=== PATIENT | female | born 1970 | race Caucasian/White ===

== ENCOUNTER → 2019-01-03 16:35 | Outpatient (CLI) | payer OTHER, SELFPAY ==
--- NOTE | 2019-01-03 16:39 | BI_ITS ---
MAMMOGRAPHY - BILATERAL SCREENING REASON FOR EXAM: Female, 48 years old. Routine annual screening examination. PERTINENT HISTORY: Grandmother with breast cancer. TECHNIQUE: Digital bilateral breast cyndie (3D mammographic acquisition) in the CC and MLO projections. 2-D mediolateral oblique (MLO) and craniocaudad (CC) views of both breasts were obtained. CAD: Full Field Digital Mammography with Computer Added Detection was performed. COMPARISON: Comparison is made with prior examination dated August 25, 2016 and December 08, 2014. FINDINGS: Breast Composition: The breasts are heterogeneously dense, which may obscure small masses. There are no dominant masses or suspicious calcifications. No other significant abnormalities are identified. There has been no significant change since the prior study. BI/SCREEN MAMM (CAD) W/CYNDIE BILAT IMPRESSION: Stable bilateral screening mammogram. Yearly follow-up mammogram recommended. (A) ASSESSMENT CATEGORY: BIRADS Category 1: Negative. A letter regarding these results will be sent to the patient by the facility within 30 days. Approximately 10% of breast cancers are not detected by mammography. A normal mammogram should not delay biopsy of a clinically suspicious abnormality. [id number] Electronically Signed: Edi Locke, at 12:57 EST , Service support ,
== END ==
PROVIDERS: Family Provider Family Medicine; PCP Family Medicine; Referring Provider Obstetrics & Gynecology; Visit Provider Obstetrics & Gynecology
DX: Z12.31 Encounter for screening mammogram for malignant neoplasm of breast (principal)
CPT/HCPCS: 77063; 77067

== ENCOUNTER → 2020-02-20 | Outpatient (CLI) | payer OTHER, SELFPAY ==
[2017-01-15 22:22] VITALS: BMI 25.3
[2020-02-25 09:13] LABS: HPV APTIMA, High Risk Negative (Negative)
== END | disposition home or self-care (01) ==
LOC: LABSPEC 13:13
PROVIDERS: PCP Family Medicine; Visit Provider Obstetrics & Gynecology
DX: Z12.4 Encounter for screening for malignant neoplasm of cervix (principal)
CPT/HCPCS: 87624; 88175; G0145

== ENCOUNTER → 2020-03-23 07:14 | Outpatient (CLI) | payer OTHER, SELFPAY ==
--- NOTE | 2020-03-22 16:34 | BI_ITS ---
MAMMOGRAPHY - BILATERAL SCREENING REASON FOR EXAM: Female, 49 years old. Routine annual screening examination. PERTINENT HISTORY: Grandmother with breast cancer. Aunt with breast cancer. TECHNIQUE: Digital bilateral breast cyndie (3D mammographic acquisition) in the CC and MLO projections. 2-D mediolateral oblique (MLO) and craniocaudad (CC) views of both breasts were obtained. CAD: Full Field Digital Mammography with Computer Added Detection was performed. COMPARISON: Comparison is made with prior examination dated 01/03/2019 and 08/25/2016. FINDINGS: Breast Composition: The breasts are heterogeneously dense, which may obscure small masses. There are no dominant masses or suspicious calcifications. No other significant abnormalities are identified. There has been no significant change since the prior study. BI/SCRN MAMM (CAD)W/CYNDIE BILAT IMPRESSION: Stable bilateral screening mammogram. Yearly follow-up mammogram recommended. (A) ASSESSMENT CATEGORY: BIRADS Category 1: Negative. A letter regarding these results will be sent to the patient by the facility within 30 days. Approximately 10% of breast cancers are not detected by mammography. A normal mammogram should not delay biopsy of a clinically suspicious abnormality. [id number] Electronically Signed: Edi Locke MD at 8:37 EST , Service support ,
== END ==
PROVIDERS: PCP Family Medicine; Referring Provider Obstetrics & Gynecology; Visit Provider Obstetrics & Gynecology
DX: Z12.31 Encounter for screening mammogram for malignant neoplasm of breast (principal)
CPT/HCPCS: 77063; 77067

== ENCOUNTER → 2021-09-20 | Outpatient (CLI) | payer OTHER, SELFPAY ==
--- NOTE | 2021-09-20 10:37 | BI_ITS ---
MAMMOGRAPHY - BILATERAL SCREENING REASON FOR EXAM: Female, 50 years old. Routine annual screening examination. PERTINENT HISTORY: Grandmother with breast cancer. Aunts with breast cancer. TECHNIQUE: Digital bilateral breast cyndie (3D mammographic acquisition) in the CC and MLO projections. 2-D mediolateral oblique (MLO) and craniocaudad (CC) views of both breasts were obtained. CAD: Full Field Digital Mammography with Computer Added Detection was performed. COMPARISON: Comparison is made with prior study dated 03/22/2020 and 01/03/2019. FINDINGS: Breast Composition: The breasts are heterogeneously dense, which may obscure small masses. There are no dominant masses or suspicious calcifications. Stable small benign-appearing bilateral axillary lymph nodes. No other significant abnormalities are identified. There has been no significant change since the prior study. BI/SCRN MAMM (CAD)W/CYNDIE BILAT IMPRESSION: Stable bilateral screening mammogram. Yearly follow-up mammogram recommended. (A) ASSESSMENT CATEGORY: BIRADS Category 2: Benign. A letter regarding these results will be sent to the patient by the facility within 30 days. Approximately 10% of breast cancers are not detected by mammography. A normal mammogram should not delay biopsy of a clinically suspicious abnormality. [id number] Electronically Signed: Edi Locke MD at 12:15 EDT ,
== END | disposition home or self-care (01) ==
LOC: OPBI 10:36
PROVIDERS: PCP Family Medicine; Visit Provider Obstetrics & Gynecology
DX: Z12.31 Encounter for screening mammogram for malignant neoplasm of breast (principal); Z80.3 Family history of malignant neoplasm of breast
CPT/HCPCS: 77063; 77067

== ENCOUNTER → 2022-09-22 | Outpatient (CLI) | payer OTHER, SELFPAY ==
--- NOTE | 2022-09-22 10:14 | BI_ITS ---
MAMMOGRAPHY - BILATERAL SCREENING REASON FOR EXAM: Female, 51 years old. Routine annual screening examination. PERTINENT HISTORY: Grandmother with breast cancer. TECHNIQUE: Digital bilateral breast cyndie (3D mammographic acquisition) in the CC and MLO projections. 2-D mediolateral oblique (MLO) and craniocaudad (CC) views of both breasts were obtained. CAD: Full Field Digital Mammography with Computer Added Detection was performed. COMPARISON: Comparison is made with prior study dated September 20, 2021 and March 22, 2020. FINDINGS: Breast Composition: The breasts are heterogeneously dense, which may obscure small masses. There is a 1 cm x 1.2 cm well-defined nodule in the slightly inferior lateral aspect of the right breast. Correlation with ultrasound is recommended. No other significant abnormalities are identified. BI/SCRN MAMM (CAD)W/CYNDIE BILAT IMPRESSION: 1 cm x 1.2 cm well-defined nodule in the anterior slightly inferior lateral aspect of the right breast. Correlation with ultrasound is recommended. ASSESSMENT CATEGORY: BIRADS Category 0: Incomplete. Need additional imaging evaluation. A letter regarding these results will be sent to the patient by the facility within 30 days. Approximately 10% of breast cancers are not detected by mammography. A normal mammogram should not delay biopsy of a clinically suspicious abnormality. [id number] Electronically Signed: Edi Locke MD at 12:24 EDT ,
== END | disposition home or self-care (01) ==
LOC: OPBI 10:13
PROVIDERS: PCP Family Medicine; Referring Provider Obstetrics & Gynecology; Visit Provider Obstetrics & Gynecology
DX: Z12.31 Encounter for screening mammogram for malignant neoplasm of breast (principal)
CPT/HCPCS: 77063; 77067

== ENCOUNTER → 2022-09-23 | Outpatient (CLI) | payer OTHER, SELFPAY ==
--- NOTE | 2022-09-23 | EMB_PTH ---
PATIENT: BRANDO ARITA LOC: [facility] U#:[id number] AGE/SX: 51/F ROOM: RE09/23/[address]: KRISH Burks : 1970 BED: DIS: 09/23/2022 SPEC #: [id number] RECD: 09/23/22 15:09 STATUS: MAYUR RENirmal #: [id number] ALHAJI: 09/23/22 00:[address]: Villa Granado DEPT: SURGICAL PATHOLOGY RECD BY: Lila Burrows ENTERED: 09/24/22 09:36 SP TYPE: ENDOM BX/C SANTO DR: DO Shannon Sandoval NP-C Tissues: Endometrium, NOS Procedures: Surgery Specimen Level IV Comments: @ Ordering doctor for SEDRICK edited from LYNNE to @ by ANT at 09/24/22 1351 @ Submitting doctor edited from LYNNE to [email or web address] Judd by ANT at 09/24/22 1358 HEADER OPERATION: Endometrial biopsy PRE-OP DIAGNOSIS: N92.6 TISSUE SUBMITTED: Endometrial biopsy, cervical polyp MICROSCOPIC DIAGNOSIS Endometrium and cervical polyp, biopsy: Strips of benign glandular mucosa. Polypoid fragments of endocervix, inflamed. AM:basil 09/25/2022 MICROSCOPIC DESCRIPTION Slides are reviewed. GROSS DESCRIPTION Received in fixative is one container labeled with the patient's name and designated endometrial biopsy. The specimen consists of multiple irregular and mucoid fragments of light reis soft tissue that in aggregate measure 2.5 x 2.0 x <0.1 cm. The specimen is totally submitted in one cassette. / AM:basil 09/24/2022 TC:5 CPT: 03633
[2022-09-23 15:12] LABS: Absolute Lymphocyte Count 2.21 X10^3/uL (0.83-4.51); Absolute Neutrophil Count 4.5 X10^3/uL (2.0-7.7); Basophil# 0.03 X10^3/uL; Basophil% 0.4 % (0-1); Eosinophils% 1.3 % (0-5); Hematocrit 40.4 % (37-47); Hemoglobin 13.4 g/dL (12.0-15.0); Lymphocyte # 2.21 X10^3/ul (0.83-4.51); Lymphocyte % 29.7 % (19-41); Mean Corp Hgb Conc 33.2 g/dL (32-36); Mean Corpuscular Hgb 27.9 pg (27.0-32.0); Mean Corpuscular Volume 84.2 fL (81-99); Mean Platelet Vol. 11.1 fl (6.2-12.0); Monocyte# 0.55 X10^3/uL; Monocyte% 7.4 % (0-10); NRBC Flagged by Analyzer 0 % (0-5); Neutrophil # 4.52 X10^3/uL (2.7-7.7); Neutrophil % 60.9 % (47-70); Platelet Count 274 K/mm3 (150-450); RBC Distribution Width CV 13.5 % (11.6-14.6); RBC Distribution Width SD 41.5 fl (35.1-43.9); White Blood Count 7.4 K/mm3 (4.4-11.0)
[2022-09-23 18:03] LABS: Estradiol 52.8 pg/mL; Follicle Stimulating Hormone 30.7 mIU/mL; Prolactin 6.2 ng/mL; T4 Free Direct 1.05 ng/dL (0.76-1.46); Thyroid Stim Hormone (TSH) 1.31 uIU/mL (0.358-3.74)
== END | disposition home or self-care (01) ==
LOC: WOBLAB 14:56
PROVIDERS: PCP Family Medicine; Visit Provider Nurse Practitioner Women's Health
DX: N92.6 Irregular menstruation, unspecified (principal)
CPT/HCPCS: 36415; 82670; 83001; 83002; 84146; 84439; 84443; 85025; 88305

== ENCOUNTER → 2022-10-01 | Outpatient (CLI) | payer OTHER, SELFPAY ==
--- NOTE | 2022-10-01 09:33 | US_ITS ---
STUDY: ULTRASOUND BREAST - RIGHT REASON FOR EXAM: Female, 51 years old. Abnormal screening mammogram. TECHNIQUE: Axial and longitudinal images of the RIGHT breast were performed with a high resolution ultrasound transducer. # OF IMAGES: 22 COMPARISON: Comparison is made with prior mammogram dated September 22, 2002. FINDINGS: RIGHT Breast: The mammographic and amount to correspond to a 1.5 cm x 1.5 cm x 0.5 cm well-defined hypoechoic solid nodule at the 8:00 position of the breast at 5 cm from the nipple. This may represent a fibroadenoma although tissue diagnosis is recommended. Incidental note is made of a 4 mm x 4 mm x 3 mm cyst at the 8:00 position of the breast at 4 cm from the nipple. US/Breast Limited Unilateral IMPRESSION: The mammographic and amount he corresponds to 1.5 cm x 1.5 cm x 0.5 cm hypoechoic well-defined nodule. Biopsy is recommended. ASSESSMENT CATEGORY: BIRADS Category 4: Suspicious - Biopsy Should Be Considered. A letter regarding these results will be sent to the patient by the facility within 30 days. Electronically Signed: Eid Locke MD at 10:36 EDT ,
== END | disposition home or self-care (01) ==
LOC: OPUS 09:31
PROVIDERS: PCP Family Medicine; Referring Provider Obstetrics & Gynecology; Visit Provider Obstetrics & Gynecology
DX: R92.8 Other abnormal and inconclusive findings on diagnostic imaging of breast (principal)
CPT/HCPCS: 76642

== ENCOUNTER → 2022-10-06 | Outpatient (CLI) | payer OTHER, SELFPAY ==
--- NOTE | 2022-10-06 10:50 | BRBX_PTH ---
PATIENT: BRANDO [facility]ITA [facility] U[facility][id number] AGE/SX: 51/F ROOM: RE10/06/[address]: Dr. Elsy Horton MD : 1970 BED: DIS: 10/06/2022 SPEC #: [id number] RECD: 10/06/22 11:28 STATUS: MAYUR JEWELL #: [id number] ALHAJI: 10/06/22 10:[address]: Elsy Horton DEPT: SURGICAL PATHOLOGY RECD BY: Lila Burrows ENTERED: 10/06/22 11:43 SP TYPE: BREAST BX OTHR DR: Dr. Jesus Robin, DO Tissues: Right breast, NOS Procedures: Surgery Specimen Level IV HEADER OPERATION: Right breast nodule biopsy PRE-OP DIAGNOSIS: Right breast nodule TISSUE SUBMITTED: Right breast nodule tissue 8 o'clock, 5.0 cm MICROSCOPIC DIAGNOSIS Right breast nodule at 8 o'clock, needle core biopsy: Glandular atrophy and collagenized stroma. No evidence of malignancy. AM:basil 10/07/2022 MICROSCOPIC DESCRIPTION Slides are reviewed. GROSS DESCRIPTION Received in fixative is one container labeled with the patient's name and designated right breast nodule. The specimen consists of two cores of reis tissue measuring in aggregate 1.0 x 0.2 x 0.1 cm. The specimen is totally submitted in one cassette. / AM:basil 10/06/2022 TC:5 CPT: 67273
== END | disposition home or self-care (01) ==
LOC: LABSPEC 11:33
PROVIDERS: PCP Family Medicine; Referring Provider Surgery; Visit Provider Surgery
DX: N63.10 Unspecified lump in the right breast, unspecified quadrant (principal)
CPT/HCPCS: 88305

== ENCOUNTER → 2023-04-10 | Outpatient (CLI) | payer OTHER, SELFPAY ==
--- NOTE | 2023-04-10 09:05 | US_ITS ---
STUDY: ULTRASOUND BREAST - RIGHT REASON FOR EXAM: Female, 52 years old. Six-month follow-up for right breast biopsy. TECHNIQUE: Axial and longitudinal images of the RIGHT breast were performed with a high resolution ultrasound transducer. # OF IMAGES: 33 COMPARISON: Comparison is made with prior sonogram dated October 01, 2022. FINDINGS: RIGHT Breast: There is a 1.3 cm x 1.5 cm x 0.9 cm well-circumscribed hypoechoic nodular density at the 8:00 position breast and 5 cm from the nipple. A biopsy clip is seen along the superior aspect of the nodule. Increased vascularity is seen. Incidental note is made of a 9 mm x 8 mm x 5 mm septated cyst at the 10:00 position of the breast at 3 cm from the nipple. US/Breast Limited Unilateral IMPRESSION: Status post biopsy of a 1.3 cm x 1.5 cm x 0.9 cm well-circumscribed hypoechoic nodular density at the o''clock position of the breast and 5 cm from the nipple. ASSESSMENT CATEGORY: BIRADS Category 2: Benign. A letter regarding these results will be sent to the patient by the facility within 30 days. Electronically Signed: Edi Locke MD at 13:52 EST ,
--- OUTSIDE RECORDS SUMMARY | 2023-04-10 09:38 | XMS RPT_ITS | CCD ---
Author Name Unknown Address [address] [place] [address] Organization [facility] Care Team Providers Care Sport Intern Name Role Phone Jesus Robin DO Primary Care Provider SHAYLA MARCELINO Attending Unavailable PROVIDER, UNKNOWN Referring Unavailable Jesus Robin Primary Care Unavailable Jesus Robin DO Primary Care Provider SILVIA SOSA Attending Unavailable JESUS ROBIN Primary Care Unavailable JESUS ROBIN Attending Unavailable JESUS ROBIN Primary Care Unavailable Allergies Allergy Classification Reported Allergen(s) Allergy Type Date of Onset Reaction(s) Facility Cephalosporins (antibiotic) (1 source) Cephalexin Drug Allergy 01-28-20 17 Rash [facility] DOPamine Antagonists (1 source) Metoclopramide Drug Allergy 09-26-19 16 [facility] Sulfamethoxazole / Trimethoprim (1 source) Sulfamethoxazole / Trimethoprim Drug Allergy 01-28-20 17 [facility] (6 sources) Amoxicillin-Pot Clavulanate Propensity to adverse reactions to drug 09-26-19 16 Rash [facility] (5 sources) Amoxicillin Drug Allergy 01-16-20 17 Rash [facility] (5 sources) Cephalexin Drug Allergy 01-28-20 17 Rash [facility] (5 sources) Clavulanate Drug Allergy 01-16-20 17 [facility] (5 sources) Metoclopramide Drug Allergy 09-26-19 16 [facility] (5 sources) Sulfamethoxazole / Trimethoprim Drug Allergy 01-28-20 17 Rash [facility] (2 sources) Doxycycline Drug Allergy 12-19-19 23 Hives [facility] Medications Current Medications Medication Drug Class(es) Dates Sig (Normalized) Sig (Original) Ascorbic Acid (1 source) Vitamin C Ascorbic Acid (VITAMIN C PO) Take by mouth. 0 Active azithromycin 250 mg oral tablet (1 source) Macrolide Antimicrobial Start: 12-18-2022 End: 12-23-2022 azithromycin (Zithromax) 250 MG tablet Indications: Viral URI , Laryngitis Take 2 tabs (500 mg) by mouth today, than 1 tab (250 mg) daily for 4 days. 6 tablet 0 12/18/2022 12/23/2022 Active Problems Active Problems Problem Classification Problem Date Documented Da te Episodic/Chronic Other ear and sense organ disorders (5 sources) Hearing loss; Translations: [Unspecified hearing loss, unspecified ear] Onset: 09-28-2022 09-28-2022 Chronic Other lower respiratory disease (1 source) Dyspnea on exertion; Translations: [Dyspnea, unspecified] Episodic Other lower respiratory disease (1 source) Rib pain; Translations: [Pleurodynia] Episodic Other screening for suspected conditions (not mental disorders or infectious disease) (5 sources) Patient encounter status; Translations: [Encounter for screening for other suspected endocrine disorder] Episodic Unclassified (2 sources) Annual Exam; Translations: [Annual Exam] Onset: 03-24-2022 Past or Other Problems Problem Classification Problem Date Documented Da te Episodic/Chronic Other upper respiratory infections (11 sources) Viral upper respiratory tract infection; Translations: [Acute upper respiratory infection, unspecified] Onset: 01-29-2021 12-07-2021 Episodic Residual codes; unclassified (8 sources) Family history of cancer of colon; Translations: [Family history of malignant neoplasm of digestive organs] Onset: 03-26-2022 03-31-2022 Episodic Residual codes; unclassified (5 sources) Family history of diabetes mellitus; Translations: [Family history of diabetes mellitus] Onset: 03-26-2022 03-26-2022 Episodic Results Test Name Value Interpretation Reference Range Facil ity Vital Signs Date Time Vital Sign Value Performing Clinician Camila brandt 12-18-2022 14:46-0400 Body mass index (BMI) [Ratio] 28.19 kg/m2 Silvia Sosa MD Work Phone: [facility] 12-18-2022 14:46-0400 Body weight 81.65 kg Silvia Sosa MD Work Phone: [facility] 12-18-2022 14:46-0400 Diastolic blood pressure 75 mm[Hg] Silvia Sosa MD Work Phone: [facility] 12-18-2022 14:46-0400 Heart rate 91 /min Silvia Sosa MD Work Phone: [facility] 12-18-2022 14:46-0400 SaO2% (BldA) [Mass fraction] 97 % Silvia Sosa MD Work Phone: [facility] 12-18-2022 14:46-0400 Systolic blood pressure 137 mm[Hg] Silvia Sosa MD Work Phone: [facility] Encounters Encounter Date Encounter Type Care Provider Facility Start: 12-18-2022 End: 12-19-2022 ambulatory [facility] Start: 12-18-2022 End: 12-18-2022 Office outpatient visit 15 minutes Silvia Sosa MD Work Phone: [facility] Internal Medicine Procedures Date Procedure Procedure Detail Performing Clinician Start: 09-22-2022 Mammography Jesus Jacekjuliana sso DO Work Phone: Start: 08-06-2020 Radiologic exam ches t 2 views Kelly Cooper MOTORCOACH OPERATOR - TEST DESK SUPERVISOR Work Phone: Start: 08-06-2020 Comprehensive metabo lic panel Kelly Cooper MOTORCOACH OPERATOR - TEST DESK SUPERVISOR Work Phone: Plan of Treatment Date Care Activity Detail Author Start: 2032 RSV Immunization age d 60 or older (1 - 1-dose 60+ series) RSV Immunization aged 60 or older (1 - 1-dose 60+ series) [facility] Start: 09-23-2023 Screening for malign ant neoplasm of breast Mammogram [facility] Start: 2022 Zoster Vaccines (1 of 2) Zoster Vacc dayron (1 of 2) [facility] Start: 10-24-2022 Influenza vaccination Influenza Vacc ine (#1) [facility] Start: 08-24-2022 Lipid panel Lipid screen [facility] Work Phone: Start: 10-24-2020 Influenza vaccination Flu vacc ine (Season Ended) [facility] Work Phone: Start: 2002 Screening for malign ant neoplasm of cervix [facility] Start: 1993 Screening for malign ant neoplasm of cervix [facility] Start: 11-01-1991 DTaP/Tdap/Td vaccine (1 - Tdap) DTaP/Tdap/Td vaccine (1 - Tdap) [facility] Work Phone: Start: 11-01-1991 DTaP/Tdap/Td Vaccine s (1 - Tdap) DTaP/Tdap/Td Vaccines (1 - Tdap) [facility] Start: 1990 Diabetes mellitus screening Diabetes Screening [facility] Start: 1990 Hepatitis C screening Hepatitis C Sc reening [facility] Start: 11-01-1987 HIV screening HIV screen [facility] Work Phone: Start: 1984 COVID-19 Vaccine (1) COVID-19 Vaccin e (1) [facility] Work Phone: Start: 1984 Depression Screening Depression Scre ening [facility] Start: 1973 MMR Vaccines (1 of 1 - Standard series) MMR Vaccines (1 of 1 - Standard series) [facility] Start: 04-30-1973 COVID-19 Vaccine (#1) COVID-19 Vacci ne (#1) [facility] Start: 1972 Hepatitis B Vaccines (1 of 3 - 3-dose series) Hepatitis B Vaccines (1 of 3 - 3-dose series) [facility] Start: 1972 Hepatitis C screening Hepatitis C sc reen [facility] Work Phone: Start: 1972 HIV screening HIV Screening [facility] Start: 1972 Screening for malign ant neoplasm of colon [facility] Payers Date Payer Category Payer Unknown 2014 Unknown [id number] 1972 Unknown [id number] Social History Date Type Detail Facility [facility]: [facility]06-[facility] Work Phone: Start: 08-06-2020 Tobacco use and exposure Never used [employer] Phone: Start: 08-06-2020 End: 09-28-2022 Alcohol intake Current drinker of alcohol (finding) [facility] Work Phone: Start: 08-06-2020 End: 12-18-2022 Alcohol intake [employer] Work Phone: Start: 09-21-2019 History SDOH Alcohol Frequency 1 [facility] Work Phone: Start: 09-21-2019 History SDOH Social Conne[employer] Phone 5 [employer] Phone: Start: 09-21-2019 History SDOH Social Conne[employer] Get Together 3 [employer] Phone: Start: 09-21-2019 History SDOH Physica l Activity DPW 0 [employer] Phone: Start: 09-21-2019 History SDOH IPV Fear 2 S [employer] Work Phone: Start: 01-19-2017 Alcohol Comment socially [employer] Phone: Start: 1970 Sex Assigned At Female [employer] Phone: Exposure to SARS-CoV -2 (event) Yes [facility] Start: 09-28-2022 End: 12-18-2022 Tobacco use panel [facility] Start: 12-13-2021 Gender identity Identifies as female gender (finding) [facility] Start: 12-13-2021 Sexual orientation Heterosexual (fin ding) [facility] Start: 03-14-2022 End: 03-24-2022 Exposure to SARS-CoV-2 (event) Not sure [facility] Clinical Notes 03-26-2022 to 12-18-2022 Silvia Sosa MD - 12/18/2022 2:40 PM EDTTelephone Encounter - Yadi Deleon - 09/29/2022 3:59 PM EDTTelephone Encounter - Yadi Deleon - 09/29/2022 3:59 PM EDT Note Date & Type Note Facility 12-18-2022 History of Presen t illness Narrative Images from the original note were not included. [facility] [address] [facility] [id number] Dept: [phone] Dept Visit type: Established patient Reason for Visit: OTHER (C/o sore throat, loss of voice) Assessment and Plan 1. Viral URI - azithromycin (Zithromax) 250 MG tablet; Take 2 tabs (500 mg) by mouth today, than 1 tab (250 mg) daily for 4 days., Normal 2. Laryngitis - azithromycin (Zithromax) 250 MG tablet; Take 2 tabs (500 mg) by mouth today, than 1 tab (250 mg) daily for 4 days., Normal Discussed with patient likely viral URI and laryngitis in nature. Advised to continue with conservative measures. We will provide her with a Z-Zi since has severe allergies to other medications and discussed if not improved by next Thursday to take medication. Patient verbalized understanding. We will continue with her Mucinex, pseudoephedrine, warm fluids and will take time off of work over the next 2 days to get rest. No follow-ups on file. Subjective HPI 52-year-old patient with past medical history as below presents today due to upper respiratory symptoms that are worsening. Upper respiratory symptoms Patient states that symptoms started on Thursday, tested home but did not. Feels that her symptoms are worsening and has now lost her voice. Has a sore throat, productive cough, headache, fatigue, sinus pressure and nausea. No fevers or congestion or vomiting or diarrhea or ear pain. Currently only taking Mucinex and herbal supplements. 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 Review of Systems Constitutional: Positive for fatigue. Negative for chills and fever. HENT: Positive for congestion, sore throat and voice change. Negative for ear pain, postnasal drip, rhinorrhea and trouble swallowing. Respiratory: Negative for cough and shortness of breath. Neurological: Positive for headaches. All other systems reviewed and are negative. Allergies Allergen Reactions Amoxicillin Rash Amoxicillin-Pot Clavulanate Rash Metoclopramide Other reaction(s): Itching of skin, Other Clavulanic Acid Other reaction(s): Rash Doxycycline Hives Cephalexin Rash Sulfamethoxazole-Trimethoprim Rash Outpatient Medications Prior to Visit Medication Sig Dispense Refill Ascorbic Acid (VITAMIN C PO) Take by mouth. No facility-administered medications prior to visit. Past Medical History: Diagnosis Date Breast cancer screening 08/2022 Dr. Granado Family history of colon cancer Family history of diabetes mellitus (DM) Hearing loss Left implantable aide Social History Tobacco Use Smoking status: Never Smokeless tobacco: Never Substance Use Topics Alcohol use: Yes Alcohol/week: 1.0 standard drink of alcohol Past Surgical History: Procedure Laterality Date SECTION (HISTORICAL) KNEE ARTHROSCOPY Left OTHER SURGICAL HISTORY implantable hearing aid left Family History Problem Relation Name Age of Onset Uterine cancer Mother Diabetes Mother Heart attack Father 69 50 age 69 Prostate cancer Father 69 High Blood Pressure Father 69 Headache Sister pseudotumor cerebri secondary to minocycline Bladder Cancer Brother Objective BP 137/75 (BP Location: Left arm, Patient Position: Sitting, BP Cuff Size: Large adult) Pulse 91 Wt 180 lb (81.6 kg) SpO2 97% BMI 28.19 kg/m Physical Exam Constitutional: General: She is not in acute distress. Appearance: Normal appearance. She is ill-appearing. She is not toxic-appearing. HENT: Head: Normocephalic. Comments: Hoarse voice. Distorted TM bilaterally but no suppuration or rupture. No tenderness to palpation over maxillary and frontal sinuses. Right Ear: Ear canal and external ear normal. There is no impacted cerumen. Left Ear: Ear canal and external ear normal. There is no impacted cerumen. Nose: Nose normal. No congestion. Mouth/Throat: Mouth: Mucous membranes are moist. Pharynx: Oropharynx is clear. No oropharyngeal exudate or posterior oropharyngeal erythema. Eyes: General: Right eye: No discharge. Left eye: No discharge. Cardiovascular: Rate and Rhythm: Normal rate. Pulses: Normal pulses. Pulmonary: Effort: Pulmonary effort is normal. No respiratory distress. Musculoskeletal: Cervical back: Neck supple. No tenderness. Lymphadenopathy: Cervical: No cervical adenopathy. Neurological: Mental Status: She is alert. Data Reviewed and Summarized Labs: Imaging/Testing: Silvia Sosa MD documented in this encounter [facility] 09-29-2022 Telephone encount er Note Colonoscopy requested from Dr. Roberson [facility] 09-29-2022 Miscellaneous Notes Formattin g of this note might be different from the original. Colonoscopy requested from Dr. Roberson Noted. Pt. Called back in to give info about colonoscopy had done earlier this / July 25 Dr. Roberson/nikolai hernandez in [place] Referral pended for doctor's signature Set up colonoscopy Patient says ok she will get a colonoscopy. Let patient know I went through the old [employer] system and I could not find a colonoscopy report. I tried to call this patient but was not accepting calls. Because of the family history of colon cancer the recommendation is to get a colonoscopy. Patient says she honestly has no clue who did it and she thinks its was done at [facility] but even that she isnt't quite sure on she says we are the ones who ordered it. Will need to know who did pt's previous colonoscopy. Please assist Placed call to patient. Was able to speak to patient. Patient stated its been over 5 years. She stated she is willing to proceed with the colonoscopy.All concerns in message have been addressed. Placed call to patient to discuss provider question about colonoscopy. Message left on voicemail to return call. Call pt and ask if she is certain that she has had a colonoscopy in the last 5 years . If she is not should get set up for colonscopy documented in this encounter [facility] 09-29-2022 Telephone encount er Note Noted. [facility] 09-29-2022 Telephone encount er Note Pt. Called back in to give info about colonoscopy had done earlier this / July 25 Dr. Roberson/nikolai hernandez in [place] [facility] 03-31-2022 Note Referral pended for doctor's signature [facility] 03-31-2022 Telephone encount er Note Referral pended for doctor's signature [facility] 03-28-2022 Telephone encount er Note Set up colonoscopy [facility] 03-28-2022 Telephone encount er Note Patient says ok she will get a colonoscopy. [facility] 03-27-2022 Telephone encount er Note Let patient know I went through the old epic system and I could not find a colonoscopy report. I tried to call this patient but was not accepting calls. Because of the family history of colon cancer the recommendation is to get a colonoscopy. [facility] 03-27-2022 Telephone encount er Note Patient says she honestly has no clue who did it and she thinks its was done at [facility] but even that she isnt't quite sure on she says we are the ones who ordered it. [facility] 03-27-2022 Telephone encount er Note Will need to know who did pt's previous colonoscopy. Please assist [facility] 03-27-2022 Telephone encount er Note Placed call to patient. Was able to speak to patient. Patient stated its been over 5 years. She stated she is willing to proceed with the colonoscopy.All concerns in message have been addressed. [facility] 03-26-2022 Telephone encount er Note Placed call to patient to discuss provider question about colonoscopy. Message left on voicemail to return call. [facility] 03-26-2022 Telephone encount er Note Call pt and ask if she is certain that she has had a colonoscopy in the last 5 years . If she is not should get set up for colonscopy [employer] documented in this encounter [facility] Work Phone: Evaluation note* Diagnosis Colon cancer screening- Primary Special screening for malignant neoplasms, colon Family history of colon cancer Family history of malignant neoplasm of gastrointestinal tract documented in this encounter [facility]* Diagnosis Viral URI- Primary Acute upper respiratory infections of unspecified site Laryngitis Acute laryngitis, without mention of obstruction documented in this encounter [facility] for referral (narrative)* Consultation (Routine) - Pending Review Specialty Diagnoses / Procedures Referred By Magali jackson Referred To Contact Gastroenterology Diagnoses Family history of colon cancer Colon cancer screening Procedures [place] OFFICE/OUTPATIENT NEW HIGH MDM 60-74 MINUTES Jesus Robin DO [address] [place] [address] David Roberson MD [address] [place] [address] [place] [id number] Referral ID Status Reason Start Date Expiration Date Visits Requested Visits Authorized [id number] Pending Review Specialty Services Required 03/31/2022 03/31/2023 1 1 [employer] Advance Directives Documents on File Type Date Recorded Patient Salad Counter Attendant Expl anation ACP-Advance Directive ACP-Power of Pipe Buffer Summary Purpose Family History No Family History Records FoundNo Family History Records Found Additional Source Comments INFORMATION SOURCE (unrecogn ized section and content) DATE CREATED AUTHOR AUTHOR'S ORGANIZ ATION 12/22/2022 [facility] Reason for Visit (unrecogniz ed section and content) Reason Comments OTHER C/o sore throat, los s of voice Reason Onset Date Comments Error (VOID this visit) 09/29/2022 Care Teams (unrecognized sec tion and content) Sport Intern Relationship Specialty Start Date End Date Jesus Robin DO [address] [place] [address] PCP - General 11/30/14 Sport Intern Relationship Specialty Start Date End Date Jesus RobinDO [address] [place] [id number] PCP - General 11/30/14 FOR RECORDS PERTAINING TO PATIENTS WHO ARE OR HAVE BEEN ENROLLED IN A CHEMICAL DEPENDENCY/SUBSTANCEABUSE PROGRAM, SOME INFORMATION MAY BE OMITTED. This clinical summary was aggregated from multiple sources. Caution should be exercised in using it in the provision of clinical care. This summary normalizes information from multiple sources, and as a consequence, information in this document may materially change the coding, format and clinical context of patient data. In addition, data may be omitted in some cases. CLINICAL DECISIONS SHOULD BE BASED ON THE PRIMARY CLINICAL RECORDS. [facility] [employer] [facility]. provides no warranty or guarantee of the accuracy or completeness of information in this document.
== END | disposition home or self-care (01) ==
PROVIDERS: PCP Family Medicine; Referring Provider Surgery; Visit Provider Surgery
DX: R92.8 Other abnormal and inconclusive findings on diagnostic imaging of breast (principal)
CPT/HCPCS: 76642

== ENCOUNTER → 2023-10-23 | Outpatient (CLI) | payer OTHER, SELFPAY ==
--- NOTE | 2023-10-23 14:16 | BI_ITS ---
MAMMOGRAPHY - BILATERAL SCREENING REASON FOR EXAM: Female, 52 years old. Routine annual screening examination. PERTINENT HISTORY: Grandmother with breast cancer. Prior right ultrasound-guided breast biopsy. TECHNIQUE: Digital bilateral breast cyndie (3D mammographic acquisition) in the CC and MLO projections. 2-D mediolateral oblique (MLO) and craniocaudad (CC) views of both breasts were obtained. CAD: Full Field Digital Mammography with Computer Added Detection was performed. COMPARISON: Comparison is made with prior study of September 22, 2022 and September 20, 2021. FINDINGS: Breast Composition: The breasts are heterogeneously dense, which may obscure small masses. There are no dominant masses or suspicious calcifications. Tissue clip marker is seen in the tiny nodule in the central slightly lateral aspect of the right breast. The previously seen nodule has decreased in size. No other significant abnormalities are identified. There has been no significant change since the prior study. BI/SCRN MAMM (CAD)W/CYNDIE BILAT IMPRESSION: Stable bilateral screening mammogram. Yearly follow-up mammogram recommended. (A) ASSESSMENT CATEGORY: BIRADS Category 2: Benign. A letter regarding these results will be sent to the patient by the facility within 30 days. Approximately 10% of breast cancers are not detected by mammography. A normal mammogram should not delay biopsy of a clinically suspicious abnormality. [id number] Electronically Signed: Edi Locke MD at 7:37 EDT ,
--- NOTE | 2023-10-23 14:16 | US_ITS ---
STUDY: ULTRASOUND BREAST - RIGHT REASON FOR EXAM: Female, 52 years old. Follow-up for prior right breast biopsy. TECHNIQUE: Axial and longitudinal images of the RIGHT breast were performed with a high resolution ultrasound transducer. # OF IMAGES: 24 COMPARISON: Comparison is made with prior sonogram dated April 10, 2023. FINDINGS: RIGHT Breast: There is a stable 1.3 cm x 1.5 cm x 0.6 cm well-circumscribed hypoechoic nodule at the 8:00 position of the breast at 5 cm from the nipple. A biopsy clip is seen along the superior aspect of the nodule. Stable 8 mm x 7 mm x 2 mm septated cyst at the 10:00 position of the breast at 3 cm from the nipple. US/Breast Limited Unilateral IMPRESSION: Stable examination. ASSESSMENT CATEGORY: BIRADS Category 2: Benign. A letter regarding these results will be sent to the patient by the facility within 30 days. Electronically Signed: Edi Locke MD at 7:55 EDT ,
== END | disposition home or self-care (01) ==
LOC: OPBI 14:14
PROVIDERS: PCP Nurse Practitioner; Referring Provider Surgery; Visit Provider Surgery
DX: Z12.31 Encounter for screening mammogram for malignant neoplasm of breast (principal); Z80.3 Family history of malignant neoplasm of breast; R92.8 Other abnormal and inconclusive findings on diagnostic imaging of breast
CPT/HCPCS: 76642; 77063; 77067

== ENCOUNTER 2024-03-12 09:51 | Emergency (ER) | payer OTHER, SELFPAY ==
[2024-03-12 09:52] VITALS: BP 92/50; PULSE 114; RESP 18; TEMP 37.2; O2SAT 98; BMI 27.3
--- NOTE | 2024-03-12 11:07 | RAD_ITS ---
EXAM: XR CHEST, 2 VIEWS CLINICAL INDICATION: cough TECHNIQUE: Frontal and lateral views of the chest. COMPARISON: No relevant prior studies available. FINDINGS: LUNGS AND PLEURAL SPACES: Ill-defined heterogeneously dense airspace disease at posterior left lower lobe. No pneumothorax. No effusion. HEART: Unremarkable. Cardiac silhouette not enlarged. MEDIASTINUM: Central airways and mediastinal contour are unremarkable. BONES/JOINTS: Unremarkable. No acute fracture. SOFT TISSUES: Unremarkable. RAD/Chest PA and Lateral IMPRESSION: Left lower lobe pneumonia posteriorly. Electronically Signed: Mic Hannon MD at 12:42 EST ,
--- NOTE | 2024-03-12 11:11 | EDS_ITS ---
HPI History of Present Illness Chief Complaint: General Illness Informant: patient Narrative Narrative: 53-year-old female presenting to the emergency room not feeling well. She notes a cough and is concerned for pneumonia. She states that over the last weekend she had some allergy symptoms but does not quite recall exactly what they were. She went to an urgent care on Thursday was felt that she could possibly have an RSV or influenza A infection but she states that she was told it was outside the window for treatment so they did not test. All week long she notes persistent nausea resulting in decreased p.o. intake and subsequently decreased urination. She notes the urine does have a bit of different smell than normal. She notes continued intermittent fevers. She states she had 101 fever this morning did not take anything but it has subsequently resolved. She notes a very minimal amount of diarrhea. Cough has been nonproductive. She notes significant fatigue [facility] Medical History Normal colonoscopy Status post placement of bone anchored hearing aid (BAHA) Abnormal ultrasound of breast Home Medications ?Medication ?Instructions ?Recorded ?Last Taken ?Type famotidine 40 mg tablet 40 mg PO DAILY #30 tabs 10/19/23 Unknown Rx azithromycin 250 mg tablet See Rx Instructions PO .COMPLEX #6 03/12/24 Unknown Rx (Zithromax Z-Zi) tabs ondansetron 4 mg disintegrating 4 mg PO Q6H PRN PRN Nausea #15 tabs 03/12/24 Unknown Rx tablet Allergy/AdvReac Type Severity Reaction Status Date / Time doxycycline Allergy Severe Rash Verified 03/12/24 09:52 Sulfa (Sulfonamide Allergy Severe Hives Verified 03/12/24 09:52 Antibiotics) amoxicillin (From Augmentin) Allergy Rash Verified 03/12/24 09:52 cephalexin (From Keflex) Allergy Hives Verified 04/22/23 13:00 clavulanic acid (From Allergy Rash Verified 03/12/24 09:52 Augmentin) metoclopramide (From Reglan) AdvReac Other Verified 03/12/24 09:52 Family History Grandmother Colon cancer Surgical History S/P breast biopsy History of knee surgery Social History Smoking Status: Never smoker alcohol intake: current alcohol intake frequency: holidays/special occasions only substance use type: does not use additional social history: takes aspirin 81mg most days ROS ROS ED ROS Narrative Generalized fatigue Constitutional Constitutional ED: Reports chills and fever(s); Denies weight loss Eyes Eyes: Denies change in vision or diplopia ENT ENT ED: Reports rhinorrhea; Denies ear pain or sore throat Cardiovascular Cardiovascular: Denies chest pain, orthopnea, palpitations or racing heartbeat Respiratory/Chest Respiratory/Chest: Reports cough; Denies dyspnea or orthopnea Gastrointestinal Gastrointestinal: Reports diarrhea and nausea; Denies abdominal pain or vomiting Genitourinary Genitourinary ED: Denies dysuria, hematuria or urinary frequency Musculoskeletal Musculoskeletal: Denies arthralgias or myalgias Integumentary Denies abscess or rash Neurologic Neurologic: Reports headache(s); Denies weakness Psychiatric Psychiatric: Denies anxiety, depression, suicidal ideation or suicidal thoughts Endocrine Endocrinology: Denies polydipsia, polyphagia or polyuria Allergic/Immunologic Allergic/Immunologic ED: Denies mouth swelling, tongue swelling or urticaria EXAM Physical Exam Const Vital Signs: 03/12/24 09:52 03/12/24 10:20 03/12/24 11:14 Temperature 98.9 F Temperature Source Oral Pulse Rate 114 H 102 H Respiratory Rate 18 Respiratory Effort Normal Non-Labored Respiratory Pattern Normal Blood Pressure 92/50 L 90/60 Blood Pressure Mean 64 70 Pulse Ox 98 96 Oxygen Delivery Method Room Air Room Air 03/12/24 13:00 03/12/24 13:30 Temperature 97.7 F L Temperature Source Pulse Rate 102 H 105 H Respiratory Rate 18 16 Respiratory Effort Respiratory Pattern Blood Pressure 82/63 L 93/44 L Blood Pressure Mean 69 60 Pulse Ox 98 98 Oxygen Delivery Method Room Air Positive well nourished and well developed General Appearance ED: well developed and NAD HEENT Reports normocephalic, head/scalp atraumatic and moist mucous membranes Eyes PERRL and EOMs intact bilaterally Neck no lymphadenopathy, supple and no JVD Resp normal respiratory effort and clear to auscultation bilaterally Resp Narrative: dry cough Cardio regular rate, regular rhythm and no murmurs Rate: tachycardic GI normal to inspection, nondistended, normoactive bowel sounds and non-tender Palpation: soft Back/Spine no CVA tenderness and normal ROM Extremity normal to inspection General Extremety ED: Negative for edema General Extremity: Negative for edema Neuro oriented x3 and CN's II-XII intact bilaterally Sensorium / Orientation: alert Motor Exam: strength 5/5 throughout Psych mental status grossly normal Mood & Affect: Negative for depressed or tearful Skin no rashes or lesions noted and no wounds MDM MDM MDM Narrative Medical decision making narrative: Differential diagnosis includes but not limited to diarrhea vomiting pneumonia viral syndrome sepsis White count slightly elevated 12.4 hemoglobin 12.8. BUN is 16 creatinine 1.03. Sodium 139 potassium 3.3 CO2 of 27. Total bilirubin is 1.3 with a direct of 0.37 AST of 41 lipase is 11. Urinalysis no overt infection. She is influenza A positive. My independent interpretation of the chest x-ray is left lower lobe infiltrate. Patient received IV fluids and blood pressures improved. The last blood pressure in the chart to the nursing recorded was 93/44 with a heart rate of 105. However as I was dictating and reviewing the patient her blood pressure while sitting up was 106/54 with a heart rate of 102. We talked about outpatient treatment with antibiotics oral hydration and Zofran. I do not believe that she needs Tamiflu and she has been symptomatic now for about 6 days. She is comfortable with outpatient management return if worsening or concerns. I will be placing her on azithromycin as she has a penicillin and sulfa doxycycline and Keflex allergies. I will write for Zofran. History & Record Review Discussion w/independent historian: Patient and Significant other Lab Data Attestation: I reviewed the patient's lab results. Labs: Laboratory Results - last 24 hr 03/12/24 03/12/24 11:15 11:30 WBC 12.4 H RBC 4.67 Hgb 12.8 Hct 38.0 MCV 81.4 MCH 27.4 MCHC 33.7 RDW Std Deviation 41.2 RDW Coeff of Amber 14.0 Plt Count 191 MPV 10.6 Neut % (Auto) Not Reportable Absolute Neuts (auto) 10.9 H Absolute Lymphs (auto) 0.74 L Total Counted 100 Neutrophils % (Manual) 68 Band Neutrophils % 20 H Lymphocytes % (Manual) 6 L Monocytes % (Manual) 6 Platelet Estimate ADEQUATE RBC Morphology NORM C+C Sodium 139 Potassium 3.3 L Chloride 105 Carbon Dioxide 27.0 Anion Gap 6 BUN 16 Creatinine 1.03 H Estim Creat Clear Calc 69.98 Est GFR (MDRD) Af Amer 73 Est GFR (MDRD) Non-Af 60 BUN/Creatinine Ratio 15.5 Glucose 114 H Calcium 8.5 Total Bilirubin 1.30 H Direct Bilirubin 0.37 H AST 41 H ALT 51 Alkaline Phosphatase 65 Total Protein 6.9 Albumin 3.0 L Globulin 3.9 Lipase 11 L Urine Color Yellow Urine Clarity Sl. Cloudy Urine pH 5.0 Ur Specific [place] 1.025 Urine Protein 30 H Urine Glucose (UA) Normal Urine Ketones Negative Urine Occult Blood 50 H Urine Nitrite Negative Urine Bilirubin 1 H Urine Urobilinogen 4 H Ur Leukocyte Esterase 25 H Urine RBC 0 SEEN Urine WBC 0-5 SEEN Ur Squamous Epith Cells 0 SEEN Urine Bacteria 0 SEEN Urine Mucus 0 SEEN Radiography Diagnostic Testing: Clinical Impression(s) from Imaging Studies Chest X-Ray 03/12/24 11:07 IMPRESSION: Left lower lobe pneumonia posteriorly. Electronically Signed: Mic Hannon MD at 12:42 EST , Discharge Plan Triage Chief Complaint: General Illness ED Provider: Sebastien Rodriguez Dx/Rx/DC Orders Clinical Impression: Pneumonia, Acute dehydration, Influenza A Instructions: ED Influenza (Adult), ED Pneumonia (Adult) Prescriptions: New azithromycin [Zithromax Z-Zi] 250 mg tablet See Rx Instructions .ROUTE .COMPLEX Qty: 6 0RF Rx Instructions: For 250 mg dose pack: take 500 mg today (day 1), then 250 mg for 4 days (days 2-5) ondansetron 4 mg tablet,disintegrating 4 mg PO Q6H PRN PRN (Reason: Nausea) Qty: 15 0RF No Action famotidine 40 mg tablet 40 mg PO DAILY Qty: 30 1RF Primary Care Provider: Dominga Joseph NP Referrals: Dominga Joseph NP, [employer] [Primary Care Provider] - As Needed Activity Restrictions/Additional Instructions: As we discussed you have influenza A and also some mild dehydration as well as pneumonia. Please orally hydrate using the Zofran to help control the nausea. Please take the full course of the antibiotic. If you feel like your breathing is worse or you are having concerns please return to emergency Print Language: Cook Islander Disposition Disposition: Home, Self Care Discharge Date/Time: 03/12/24 13:35
[2024-03-12 11:14] VITALS: BP 90/60; PULSE 102; O2SAT 96
[2024-03-12 11:27] LABS: Hemoglobin 12.8 g/dL (12.0-15.0); Mean Corp Hgb Conc 33.7 g/dL (32-36); Mean Corpuscular Hgb 27.4 pg (27.0-32.0); Mean Corpuscular Volume 81.4 fL (81-99); Mean Platelet Vol. 10.6 fl (6.2-12.0); POSITIVE MORPHOLOGY YES; Platelet Count 191 K/mm3 (150-450); RBC Distribution Width SD 41.2 fl (35.1-43.9); Red Blood Count 4.67 M/mm3 (4.2-5.4); White Blood Count 12.4 K/mm3 (4.4-11.0)
[2024-03-12] MEDS: 0.9% Normal Saline (1000mL) 1,000 ML 999 ML IV (11:35)
[2024-03-12 11:41] LABS: Bacteria 0 SEEN /hpf (None Seen); Mucous, Urine 0 SEEN /hpf (<or=2+); Red Blood Cells-Urine 0 SEEN /hpf (0-5); Squamous Epithelial Cells - UA 0 SEEN /hpf (5-10)
[2024-03-12 11:42] LABS: Color, Urine Yellow (Yellow); Glucose, Dipstick Normal (Normal); Ketone-Dipstick Negative (Negative); Leukocyte Esterase-Dipstick 25 /ul (Negative); Nitrite-Dipstick Negative (Negative); Occult Blood-Urine 50 /ul (Negative); Protein-Dipstick 30 mg/dl (Negative); Specific Gravity, Urine 1.025 (1.002-1.030); Urine Bilirubin Dipstick 1 mg/dL (Negative); Urine Clarity Sl. Cloudy (Clear); Urine Urobilinogen 4 mg/dl (Normal)
[2024-03-12 11:44] LABS: Differential Indicated MANUAL DIFF
[2024-03-12 11:45] LABS: AST(SGOT) 41 U/L (15-37); Alanine Aminotransfer ALT/SGPT 51 U/L (13-56); Alkaline Phosphatase 65 U/L (45-117); Anion Gap 6 (5-15); BUN 16 mg/dL (7-18); BUN/Creat Ratio 15.5 RATIO (10-20); Bilirubin, Direct 0.37 mg/dL (0.00-0.30); Calcium,Total 8.5 mg/dL (8.5-10.1); Chloride 105 mmol/L (98-107); Creatinine, Serum 1.03 mg/dL (0.55-1.02); EST Glomerular Filtration Rate 60 mL/min (>60); Est Glom Filt Rate - Afr Amer 73 mL/min (>60); Estimated Creatinine Clearance 69.98 ml/min; Globulin 3.9 g/dL (2.2-4.2); Glucose 114 mg/dL (74-106); Lipase 11 U/L (13-75); Potassium 3.3 mmol/L (3.5-5.1); Protein, Total 6.9 g/dL (6.4-8.2); Sodium Level 139 mmol/L (136-145)
[2024-03-12 11:46] LABS: Lymphocyte 6 % (19-41); Monocyte 6 % (0-10); Neutrophil-Band 20 % (0-5); Neutrophil-Segmented 68 % (47-70); Total Cells Counted 100 (MANUAL DIFF)
[2024-03-12 11:47] LABS: Absolute Lymphocyte Count 0.74 X10^3/uL (0.83-4.51); Absolute Neutrophil Count 10.9 X10^3/uL (2.0-7.7); Platelet Estimate ADEQUATE (ADEQ); Red Cell Morphology NORM C+C NORMAL (NORM C&C)
[2024-03-12 11:54] LABS: White Blood Cells 0-5 SEEN /hpf (0-5)
[2024-03-12 13:00] VITALS: BP 82/63; PULSE 102; RESP 18; O2SAT 98
[2024-03-12 13:30] VITALS: BP 93/44; PULSE 105; RESP 16; TEMP 36.5; O2SAT 98
--- NOTE | 2024-03-12 14:27 | ED.RN ---
Rx switched to [facility] in [place] per pt request..
== END 2024-03-12 13:35 | disposition home or self-care (01) ==
PROVIDERS: Emergency Provider Emergency Medicine; PCP Nurse Practitioner; Visit Provider Emergency Medicine
DX: J10.00 Influenza due to other identified influenza virus with unspecified type of pneumonia (principal); E86.0 Dehydration

== ENCOUNTER 2024-04-01 21:07 | Emergency (ER) | payer OTHER, SELFPAY ==
[2024-04-01 21:08] VITALS: BP 132/59; PULSE 97; RESP 16; TEMP 36.9; O2SAT 100; BMI 27.3
[2024-04-01 21:16] VITALS: O2SAT 98
--- NOTE | 2024-04-01 21:16 | EKG12_ITS ---
Test Reason : CP Blood Pressure : */* mmHG Vent. Rate : 95 BPM Atrial Rate : 95 BPM P-R Int : 130 ms QRS Dur : 76 ms QT Int : 370 ms P-R-T Axes : 61 21 67 degrees QTcB Int : 464 ms Normal sinus rhythm Normal ECG Confirmed by SVEN ARCHIBALD, SYLVESTER ([id number]), fashion editor BILL RAVI ([id number]) on 04/04/2024 7:28:59 AM Referred By: TB Confirmed By: SYLVESTER MACHUCA MD
[2024-04-01 21:33] LABS: Absolute Lymphocyte Count 1.99 X10^3/uL (0.83-4.51); Absolute Neutrophil Count 4.2 X10^3/uL (2.0-7.7); Basophil# 0.03 X10^3/uL; Basophil% 0.4 % (0-1); Eosinophil# 0.13 X10^3/uL; Eosinophils% 1.8 % (0-5); Hematocrit 39.6 % (37-47); Hemoglobin 12.8 g/dL (12.0-15.0); Lymphocyte # 1.99 X10^3/ul (0.83-4.51); Lymphocyte % 27.6 % (19-41); Mean Corp Hgb Conc 32.3 g/dL (32-36); Mean Corpuscular Hgb 27.1 pg (27.0-32.0); Mean Corpuscular Volume 83.7 fL (81-99); Mean Platelet Vol. 10.3 fl (6.2-12.0); Monocyte# 0.89 X10^3/uL; Monocyte% 12.3 % (0-10); NRBC Flagged by Analyzer 0 % (0-5); Neutrophil # 4.15 X10^3/uL (2.7-7.7); Neutrophil % 57.6 % (47-70); Platelet Count 348 K/mm3 (150-450); RBC Distribution Width CV 14.3 % (11.6-14.6); RBC Distribution Width SD 43.4 fl (35.1-43.9); Red Blood Count 4.73 M/mm3 (4.2-5.4); White Blood Count 7.2 K/mm3 (4.4-11.0)
[2024-04-01] MEDS: 0.9% Normal Saline (1000mL) 1,000 ML 999 ML IV (21:34)
--- NOTE | 2024-04-01 21:40 | RAD_ITS ---
PROCEDURE: CHEST PA AND LATERAL REASON FOR EXAM: Pain; prior pneumonia. TECHNIQUE: Frontal and lateral views of the chest. COMPARISON: None. FINDINGS: The heart size is normal. The mediastinal contour is unremarkable. Mild left basilar opacity which may represent individual pneumonia, atelectasis or scar. The bones are unremarkable. RAD/Chest PA and Lateral IMPRESSION: Pulmonary findings as above. Reading Location: [id number]
--- NOTE | 2024-04-01 21:41 | EDS_ITS ---
HPI History of Present Illness Chief Complaint: Chest Pain Narrative Narrative: Patient is a 53-year-old female with no known significant past medical history who presented to the emergency department with a chief complaint of left-sided chest pain. Patient states that earlier today she had periods of intermittent sharp pain on the left side. States that she was not doing anything particular she was resting when this all started. States that if she moved a certain way or would cough or have a hiccup this would exacerbate the pain. States that recently she approximately 3 weeks ago had influenza and pneumonia she was evaluated here at [facility]. Patient denies any history of blood clots denies any recent travel history. Patient states that she does not have any pain with deep inspiration. Patient states that nothing makes her pain better and states that when she gets moving around this does not make the pain worse. Patient is not any medications daily. Patient states that she does not smoke has occasional alcohol use and denies any drug use. [facility] Medical History Normal colonoscopy Status post placement of bone anchored hearing aid (BAHA) Abnormal ultrasound of breast Home Medications ?Medication ?Instructions ?Recorded ?Last Taken ?Type NK 04/01/24 Unknown History Allergy/AdvReac Type Severity Reaction Status Date / Time doxycycline Allergy Severe Rash Verified 04/01/24 21:10 Sulfa (Sulfonamide Allergy Severe Hives Verified 04/01/24 21:10 Antibiotics) amoxicillin (From Augmentin) Allergy Rash Verified 04/01/24 21:10 cephalexin (From Keflex) Allergy Hives Verified 04/01/24 21:10 clavulanic acid (From Allergy Rash Verified 03/12/24 09:52 Augmentin) sulfamethoxazole (From Allergy Hives Verified 04/01/24 21:11 Bactrim) trimethoprim (From Bactrim) Allergy Hives Verified 04/01/24 21:11 metoclopramide (From Reglan) AdvReac Other Verified 04/01/24 21:10 Family History Grandmother Colon cancer Surgical History S/P breast biopsy History of knee surgery Social History Smoking Status: Never smoker alcohol intake: current alcohol intake frequency: holidays/special occasions only substance use type: does not use additional social history: takes aspirin 81mg most days ROS ROS ED ROS Narrative Constitutional: Denies any fevers, chills, headaches Eyes: Denies changes double vision blurry vision Cardiovascular: Complains of left-sided chest discomfort as noted above Respiratory: Denies coughing wheezing shortness of breath Abdomen: Denies abdominal pain nausea vomit diarrhea : Denies urinary symptoms Neurological: Denies numbness, weakness, tingling Musculoskeletal: Complains of left lateral rib pain Skin: Denies any rashes or lesions EXAM Physical Exam Narrative Exam Narrative: General: Patient lying in bed rest comfortably did not appear to be in acute distress Head: Atraumatic, normocephalic Eyes: PERRL bilaterally, EOMI bilaterally, no conjunctival injection noted Neck: Soft, supple, trachea midline Cardiovascular: Regular rate and rhythm no murmurs gallops rubs noted Respiratory: Clear to auscultation bilaterally Abdomen: Soft, nondistended, nontender to palpation, bowel sounds present x 4 Musculoskeletal: Patient has tenderness palpation over the left lateral rib cage no CVA tenderness noted no tenderness palpation midline thoracolumbar spine Extremities: +5/5 strength noted in the bilateral upper and lower extremities, radial pulses +2/4 in the bilateral extremities, no pedal edema exam Neurological: Patient following commands knew that she is at [facility] years 2024 Skin: Warm, dry, intact no rashes or lesions noted Const Vital Signs: 04/01/24 21:08 04/01/24 21:16 04/01/24 22:07 Temperature 98.4 F Temperature Source Oral Pulse Rate 97 91 Respiratory Rate 16 14 Blood Pressure 132/59 H 120/46 L Blood Pressure Mean 83 70 Pulse Ox 100 98 99 Oxygen Delivery Method Room Air Room Air Room Air 04/01/24 22:45 04/01/24 23:54 Temperature Temperature Source Pulse Rate 92 94 Respiratory Rate 20 H 17 Blood Pressure 123/41 H Blood Pressure Mean 68 Pulse Ox 93 94 Oxygen Delivery Method Room Air Room Air MDM MDM MDM Narrative Medical decision making narrative: Patient is a 53-year-old female who presented to the emerged part with a chief complaint of left-sided chest discomfort. On the differential diagnose includes but not limited to ACS, pneumonia, pneumothorax, pulmonary embolism although feel that this is less likely as her revised Sheridan score is low risk, zoster. Once workup is obtained reviewed she will be reevaluated. Patient's CBC was reviewed showed no evidence leukocytosis white blood count normal at 7.2, hemoglobin 12.8, platelet count was noted be 348. Patient sodium normal 139, potassium normal at 3.9, creatinine normal at 0.86. Patient's troponin was noted to be less than 3 with a delta troponin pending. Patient is EKG reviewed and independently interpreted myself showed sinus rhythm with a rate of 95 bpm. Patient's chest x-ray reviewed by myself and by radiology showed mild left basilar opacity which may represent individual pneumonia, atelectasis or scar she does not have any respiratory symptoms at this point in time therefore feel less likely as she has pneumonia at this point in time. Patient's delta troponin pending with will sign the case out to oncoming provider to make ultimate disposition however this is normal I have low suspicion that this is cardiac in nature and she can go home. Patient will be advised to rotate Tylenol and ibuprofen [id number] for pain control and watch out for rashes or lesions on that side. She will be encouraged return with worsening symptoms and concerns. Lab Data Labs: Laboratory Results - last 24 hr 04/01/24 21:24 WBC 7.2 RBC 4.73 Hgb 12.8 Hct 39.6 MCV 83.7 MCH 27.1 MCHC 32.3 RDW Std Deviation 43.4 RDW Coeff of Amber 14.3 Plt Count 348 MPV 10.3 Immature Gran % (Auto) 0.300 Neut % (Auto) 57.6 Lymph % (Auto) 27.6 [place] % (Auto) 12.3 H Eos % (Auto) 1.8 Baso % (Auto) 0.4 Absolute Neuts (auto) 4.2 Absolute Lymphs (auto) 1.99 Nucleated RBC % 0 Sodium 139 Potassium 3.9 Chloride 103 Carbon Dioxide 29.0 Anion Gap 7 BUN 13 Creatinine 0.86 Estim Creat Clear Calc 83.77 Est GFR (MDRD) Af Amer 89 Est GFR (MDRD) Non-Af 73 BUN/Creatinine Ratio 15.0 Glucose 116 H Calcium 9.0 Troponin I High Sens < 3 L Radiography Diagnostic Testing: Clinical Impression(s) from Imaging Studies Chest X-Ray 04/01/24 21:40 IMPRESSION: Pulmonary findings as above. Reading Location: [facility] Discharge Plan Triage Chief Complaint: Chest Pain ED Provider: Tyler Mckeon Dx/Rx/DC Orders Clinical Impression: Chest pain Prescriptions: No Action NK Primary Care Provider: Dominga Joseph NP Referrals: Dominga Joseph NP, [employer] [Primary Care Provider] - Activity Restrictions/Additional Instructions: Follow-up with your doctor in outpatient setting. Since you have not had a stress test may want to consider having this obtained by your primary care physician. Return with worsening symptoms or concerns Print Language: Tunisian Disposition Disposition: Home, Self Care
[2024-04-01 21:52] LABS: Anion Gap 7 (5-15); BUN 13 mg/dL (7-18); Chloride 103 mmol/L (98-107); Creatinine, Serum 0.86 mg/dL (0.55-1.02); EST Glomerular Filtration Rate 73 mL/min (>60); Est Glom Filt Rate - Afr Amer 89 mL/min (>60); Estimated Creatinine Clearance 83.77 ml/min; Glucose 116 mg/dL (74-106); Potassium 3.9 mmol/L (3.5-5.1); Sodium Level 139 mmol/L (136-145); Troponin-I HS (w/2H Reflex) < 3 pg/mL (3.0-54.0)
[2024-04-01 22:07] VITALS: BP 120/46; PULSE 91; RESP 14; O2SAT 99
[2024-04-01 22:45] VITALS: BP 123/41; PULSE 92; RESP 20; O2SAT 93
[2024-04-01 23:30] LABS: Reflex Troponin-HS? (from REC) Y
[2024-04-01 23:54] VITALS: PULSE 94; RESP 17; O2SAT 94
[2024-04-02 00:16] LABS: Troponin-I HS < 3 pg/mL (3.0-54.0)
[2024-04-02 00:35] VITALS: BP 101/43; PULSE 87; RESP 15; TEMP 36.6; O2SAT 96
== END 2024-04-02 00:35 | disposition home or self-care (01) ==
PROVIDERS: Emergency Provider Emergency Medicine; PCP Nurse Practitioner; Visit Provider Emergency Medicine
DX: R07.89 Other chest pain (principal)
CPT/HCPCS: 71046; 80048; 84484; 85025; 93005; 96360; 99284; A4216

== ENCOUNTER → 2024-06-10 | Outpatient (CLI) | payer OTHER, SELFPAY ==
[2024-06-10 23:10] LABS: Cholesterol 220 mg/dL (<=200); High Density Lipoprotein 55 mg/dL; Low Density Lipoprotein Calc. 122 mg/dL; Triglycerides 220 mg/dL; Very Low Density Lipoprotein 44 mg/dL (5-40); cholesterol:hdl ratio screen 4.04
== END | disposition home or self-care (01) ==
PROVIDERS: PCP Nurse Practitioner; Referring Provider Nurse Practitioner; Visit Provider Nurse Practitioner
DX: K21.9 Gastro-esophageal reflux disease without esophagitis (principal)
CPT/HCPCS: 80061